=== PATIENT | male | born 1950 | race Caucasian/White ===

== ENCOUNTER 2025-02-26 08:51 | Outpatient (CLI) | payer MEDICARE, OTHER | END 2025-02-26 08:52 | disposition home or self-care (01) | LOC: CSHSLEEP 08:51 | PROVIDERS: ATTEND Internal Medicine Critical Care Medicine | DX: G47.33 Obstructive sleep apnea (adult) (pediatric) (principal); R53.83 Other fatigue; I10 Essential (primary) hypertension; G47.31 Primary central sleep apnea | CPT/HCPCS: 95810 ==